=== PATIENT | male | born 1965 | race Caucasian/White ===

== ENCOUNTER 2016-11-07 11:23 | Emergency (ER) | payer MEDICARE, MEDICAID ==
--- NOTE | 2016-11-07 12:09 | ER Document Report ---
ED General - General Mode of Arrival: Medic Information source: Patient, Relative TRAVEL OUTSIDE OF THE [place] IN LAST 30 DAYS: No - HPI Patient complains to provider of: Difficulty Walking Onset: This morning Associated symptoms: Other - see above <SHANNON ARMAS - Last Filed: 11/07/16 12:38> <RAY MURGUIA - Last Filed: 11/07/16 16:28> <BIA BAKER - Last Filed: 11/07/16 22:03> - General Chief Complaint: General Weakness Stated Complaint: WEAKNESS Notes: 51 year old male with history of testicular cancer (metastasized to the right brain) and seizure disorder presents to the ED via EMS complaining of difficulty walking that started yesterday. According to family members, the patient usually walks fine with a walker, but suddenly started having difficulties. Family also states that the patient has been having progressively worsening episodes of urinary incontinence for the past 1-2 weeks. Patient's cognition is not at baseline according to the family. Patient is complaining of weakness to the bilateral lower extremities, but no leg pain. Family explains that in December 2011 the patient had a similar episode of difficulty walking, urinary incontinence, and loss of baseline cognition. Patient was taken to [facility] and it was found that he had abnormally high ammonia levels. Patient is currently taking Depakote, Lamictal, Keppra, and Seroquel. Family states that the patient's neurologist started the patient on Lamictal in September and will begin to wean the patient off of Keppra. (SHANNON ARMAS) - Related Data Allergies/Adverse Reactions: No Known Allergies Allergy (Unverified 10/10/13 10:04) Past Medical History - General Information source: Patient, Relative - Social History Smoking Status: Unknown if Ever Smoked Family History: Reviewed & Not Pertinent Neurological Medical History: Reports: Hx Seizures Malignancy Medical History: Reports Hx Testicular Cancer - With brain metastases Past Surgical History: Reports: Hx Neurologic Surgery - Right-sided craniotomy with frontal parietal and temporal lobe resection. - Immunizations Hx Diphtheria, Pertussis, Tetanus Vaccination: No <SHANNON ARMAS - Last Filed: 11/07/16 12:38> Review of Systems - Review of Systems Constitutional: No symptoms reported EENT: No symptoms reported Cardiovascular: No symptoms reported Respiratory: No symptoms reported Gastrointestinal: No symptoms reported Genitourinary: See HPI, Incontinence Male Genitourinary: No symptoms reported Musculoskeletal: No symptoms reported Skin: No symptoms reported Hematologic/Lymphatic: No symptoms reported Neurological/Psychological: See HPI, Weakness - bilateral legs, Other - decrease in cognition (according to family members, not at baseline) -: Yes All other systems reviewed and negative <SHANNON ARMAS - Last Filed: 11/07/16 12:38> Physical Exam - General General appearance: Alert In distress: None - HEENT Head: Other - Right brain craniotomy. No: Normocephalic Eyes: Normal Extraocular movements intact: Yes Pupils: PERRL - Respiratory Respiratory status: No respiratory distress Breath sounds: Normal - Cardiovascular Rhythm: Regular Heart sounds: Normal auscultation - Abdominal Inspection: Normal Distension: No distension Bowel sounds: Normal Tenderness: Nontender - Back Back: Normal - Extremities General upper extremity: Normal inspection, Normal ROM General lower extremity: Normal inspection, Normal ROM - Neurological Neuro grossly intact: Yes Cognition: Other - Aaccording to family, patient is NOT at baseline. Slight difficulty following commands.. No: Normal Additional motor exam normals: Dorsiflexion - slightly weak 3/5 bilaterally, Plantar flexion - slightly weak 3/5 bilaterally, Other - Able to pick bilateral feet off the bed and also able to move bilateral feet towards respective buttock. - Psychological Associated symptoms: Normal affect, Normal mood - Skin Skin Temperature: Warm Skin Moisture: Dry Skin Color: Normal <SHANNON ARMAS - Last Filed: 11/07/16 12:38> Course <SHANNON ARMAS - Last Filed: 11/07/16 12:38> - Laboratory Result Diagrams: 11/07/16 12:30 11/07/16 12:30 - Transfer of Care Care transferred to following provider: Dr. Baker <RAY MURGUIA - Last Filed: 11/07/16 16:28> - Laboratory Result Diagrams: 11/07/16 12:30 11/07/16 12:30 - Diagnostic Test Radiology reviewed: Image reviewed, Reports reviewed <BIA BAKER - Last Filed: 11/07/16 22:03> - Re-evaluation Re-evalutation: 11/07/16 16:26 The patient's lab work including ammonia level and urinalysis is unremarkable. The case was discussed with the radiologist, and was decided to get an MRI with contrast of the brain and lumbar spine. (RAY MURGUIA) 11/07/16 21:[address] Chapman no mass in brain, no cauda equina concerns family made aware no mass like effect noted Family is happy with this plan After performing a Medical Screening Examination, I estimate there is LOW risk for EXPANDING OR RUPTURED ABDOMINAL AORTIC ANEURYSM, CAUDA EQUINA SYNDROME, EPIDURAL MASS LESION, or HERNIATED DISK CAUSING SEVERE SPINAL STENOSIS, thus I consider the discharge disposition reasonable. The patient and I have discussed the diagnosis and risks, and we agree with discharging home and close follow-up. We also discussed returning to the Emergency Department immediately if new or worsening symptoms occur with the understanding that symptoms and presentations can change. We have discussed the symptoms which are most concerning (e.g., saddle anesthesia, urinary or bowel incontinence or retention , changing or worsening pain) that necessitate immediate return. (BIA BAKER) - Vital Signs Vital signs: Temp Pulse Resp BP Pulse Ox 98.5 F 88 20 118/72 97 11/07/16 16:37 11/07/16 16:37 11/07/16 16:37 11/07/16 16:37 11/07/16 16:37 (RAY MURGUIA) (BIA BAKER) - Laboratory Laboratory results interpreted by me: 11/07/16 11/07/16 12:30 13:55 Glucose 141 H Urine Blood SMALL H (RAY MURGUIA) (BIA BAKER) - Transfer of Care Notes: 11/07/16 16:27 Patient care was turned over to Dr. Corinna Rogers pending the results of the brain and lumbar spine MRI. If these results are unremarkable or noncontributory, and he will be discharged to follow-up with his primary care provider. The family is aware of these plans. (RAY MURGUIA) Discharge <SHANNON ARMAS - Last Filed: 11/07/16 12:38> <RAY MURGUIA - Last Filed: 11/07/16 16:28> <BIA BAKER - Last Filed: 11/07/16 22:03> - Discharge Clinical Impression: Altered mental status Qualifiers: Altered mental status type: unspecified Qualified Code(s): R41.82 - Altered mental status, unspecified Urinary incontinence Qualifiers: Urinary Incontinence type: unspecified incontinence Qualified Code(s): R32 - Unspecified urinary incontinence Lower extremity weakness Qualifiers: Laterality: bilateral Qualified Code(s): R29.898 - Other symptoms and signs involving the musculoskeletal system Condition: Stable Disposition: HOME, SELF-CARE Referrals: RANJANA HATFIELD [Primary Care Provider] - Follow up tomorrow Scribe Documentation - Scribe Written by Scribe:: Deedee Henry, 11/07/2016 1216 acting as scribe for :: Benito <SHANNON ARMAS - Last Filed: 11/07/16 12:38>
[2016-11-07 13:02] LABS: ABSOLUTE EOSINOPHILS # (AUTO) 0.1 10^3/uL (0.0-0.6); ABSOLUTE LYMPHOCYTES (AUTO) 2.7 10^3/uL (0.5-4.7); ABSOLUTE MONOCYTES (AUTO) 0.7 10^3/uL (0.1-1.4); ABSOLUTE NEUT (AUTO) 3.8 10^3/uL (1.7-8.2); BASOPHILS % (AUTO) 0.4 % (0-2); EOSINOPHILS % (AUTO) 1.6 % (0-6); HEMATOCRIT 40.6 % (37.9-51.0); HGB HCT DIFFERENCE 1.4; LYMPHOCYTES % (AUTO) 36.2 % (13-45); MEAN CORPUSCULAR HEMOGLOBIN 30.8 pg (27.0-33.4); MEAN CORPUSCULAR HGB CONC 34.6 g/dL (32.0-36.0); MEAN CORPUSCULAR VOLUME 89 fl (80-97); MONOCYTES % (AUTO) 9.7 % (3-13); RED BLOOD COUNT 4.57 10^6/uL (4.35-5.55); RED CELL DISTRIBUTION WIDTH 13.7 % (11.5-14.0); SEGMENTED NEUTROPHILS % (AUTO) 52.1 % (42-78); WHITE BLOOD COUNT 7.3 10^3/uL (4.0-10.5)
[2016-11-07 13:23] LABS: ALANINE AMINOTRANSFERASE 46 U/L (21-72); ALBUMIN 3.8 g/dL (3.5-5.0); ALKALINE PHOSPHATASE 82 U/L (38-126); ANION GAP 13 (5-19); ASPARTATE AMINO TRANSFERASE 31 U/L (17-59); BILIRUBIN,TOTAL 0.4 mg/dL (0.2-1.3); BLOOD UREA NITROGEN 13 mg/dL (7-20); CALCIUM 9.3 mg/dL (8.4-10.2); CARBON DIOXIDE 26 mmol/L (22-30); CHLORIDE 106 mmol/L (98-107); CREATININE RESULT 0.81 mg/dL (0.52-1.25); GLUCOSE 141 mg/dL (75-110); MAGNESIUM 1.7 mg/dL (1.6-2.3); POTASSIUM 3.9 mmol/L (3.6-5.0); SODIUM 144.7 mmol/L (137-145); TOTAL PROTEIN 7.3 g/dL (6.3-8.2)
[2016-11-07 14:39] LABS: APPEARANCE,URINE CLEAR; BILIRUBIN,URINE NEGATIVE (NEGATIVE); GLUCOSE, URINE NEGATIVE (NEGATIVE); KETONES,URINE NEGATIVE (NEGATIVE); LEUKOCYTE ESTERASE,URINE NEGATIVE (NEGATIVE); NITRITE,URINE NEGATIVE (NEGATIVE); PROTEIN,URINE NEGATIVE (NEGATIVE); URINE SPECIFIC GRAVITY 1.021; UROBILINOGEN,URINE NEGATIVE mg/dL (<2.0)
[2016-11-07 22:58] VITALS: BP 123/78
== END 2016-11-07 22:58 | disposition home or self-care (01) ==
LOC: ER 11:23
DX: R41.82 Altered mental status, unspecified (principal); R32 Unspecified urinary incontinence; R29.898 Other symptoms and signs involving the musculoskeletal system; R53.1 Weakness; Z85.47 Personal history of malignant neoplasm of testis; G40.909 Epilepsy, unspecified, not intractable, without status epilepticus; Z79.899 Other long term (current) drug therapy
CPT/HCPCS: 99285; 36415; 87040; 82140; 83735; 85025; 80053; 81001; 80164; 70553; 72158; A9577